=== PATIENT | female | born 1995 | race Caucasian/White ===

== ENCOUNTER 2017-04-24 04:30 | Emergency (ER) | payer OTHER ==
[2017-04-24 04:57] LABS: RAPID STREP SCREEN REAGENT QC YELLOW (YELLOW)
--- NOTE | 2017-04-24 05:37 | ED Physician Documentation ---
PD HPI HEENT - Stated complaint Stated Complaint: FEVER - Chief complaint Chief Complaint: Fever - History obtained from History obtained from: Patient - History of Present Illness Timing - onset: Last night Timing - details: Abrupt onset Pain level now: 6 Location: Throat Improves: Nothing Worsens: Swalllowing Associated symptoms: Fever (Tmax 102) Similar symptoms before: Has not had sx before Recently seen: Not recently seen Review of Systems Constitutional: reports: Fever, Chills, Myalgias, Sweats Nose: denies: Rhinorrhea / runny nose, Congestion, Sinus pressure / pain Throat: reports: Sore throat Respiratory: denies: Dyspnea, Cough GI: denies: Abdominal Pain : denies: Dysuria PD PAST MEDICAL HISTORY - Past Medical History Past Medical History: No - Past Surgical History Past Surgical History: Yes - Present Medications Home Medications: Ambulatory Orders Medication Instructions Recorded Confirmed HYDROcod/ACETAM 5/325 [Bison 5/325] 1 - 2 ea PO Q6H PRN #15 tablet 04/24/17 - Allergies Allergies/Adverse Reactions: Allergies Allergy/AdvReac Type Severity Reaction Status Date / Time No Known Drug Allergies Allergy Verified 04/24/17 04:36 - Social History Does the pt smoke?: No Smoking Status: Never smoker Does the pt drink ETOH?: Yes Does the pt have substance abuse?: No - Immunizations Immunizations are current?: Yes - POLST Patient has POLST: No PD ED PE NORMAL - Vitals Vital signs reviewed: Yes - General General: Alert and oriented X 3, No acute distress, Well developed/nourished - HEENT HEENT: Ears normal, Moist mucous membranes - Neck Neck: Supple, no meningeal sign - Respiratory Respiratory: No respiratory distress, Clear bilaterally - Abdomen Abdomen: Soft, Non tender PD ED PE EXPANDED - HEENT HEENT: Pharyngeal erythema. No: Tonsillar exudate Results - Vitals Vitals: Vital Signs - 24 hr 04/24/17 04/24/17 04:30 06:20 Temperature 37.6 C H 37.3 C Heart Rate 127 H 122 H Respiratory 18 16 Rate Blood Pressure 120/77 124/88 H O2 Saturation 98 98 Oxygen O2 Source Room air - Labs Labs: Laboratory Tests 04/24/17 04:30 Group A Strep Rapid Negative PD MEDICAL DECISION MAKING - ED course Complexity details: reviewed results, re-evaluated patient, considered differential, d/w patient Departure - Departure Disposition: Home, Self Care Clinical Impression: Pharyngitis Condition: Good Instructions: ED Pharyngitis Viral Report Pending Follow-Up: TAY Crowder [Provider Group] Prescriptions: HYDROcod/ACETAM 5/325 [Bison 5/325] 1 - 2 ea PO Q6H PRN #15 tablet PRN Reason: Pain Forms: Activity restrictions Discharge Date/Time: 04/24/17 06:25
[2017-04-24] MEDS ORDERED: HYDROcod/ACETAM 5/325 MG TABLET PO STA (05:51)
[2017-04-24] MEDS ORDERED: DEXAMETHASONE 10 MG/ML VIAL PO STA (05:51)
[2017-04-24] MEDS ORDERED: CHERRY SYRUP 10 ML UDC PO ONE (06:06)
[2017-04-24 06:25] VITALS: BP 124/88
== END 2017-04-24 06:25 | disposition home or self-care (01) ==
LOC: ED 04:30
DX: J02.9 Acute pharyngitis, unspecified (principal)
CPT/HCPCS: 87070; 87430; 99283; A9270